=== PATIENT | female | born 1940 | race Caucasian/White ===

== ENCOUNTER 2023-07-18 09:32 | Emergency (ER) | payer MEDICARE, SELFPAY ==
[2023-07-18 09:33] VITALS: BP 96/61; PULSE 67; RESP 20; TEMP 35.7; O2SAT 98
[2023-07-18 09:44] VITALS: BP 96/61; PULSE 75; RESP 24
--- NOTE | 2023-07-18 09:50 | ECG_ITS ---
Measurements Intervals [place] Rate: 70 P: 39 [place]: 191 QRS: 24 QRSD: 106 T: 52 QT: 426 QTc: 460 Interpretive Statements SINUS RHYTHM WITH OCCASIONAL SUPRAVENTRICULAR PREMATURE COMPLEXES NONSPECIFIC T-WAVE ABNORMALITY NO PREVIOUS ECG AVAILABLE FOR COMPARISON Electronically Signed On 07-18-2023 11:22:53 CDT by Lore Jones M.D.
--- NOTE | 2023-07-18 09:52 | ED.AMS ---
HPI - Altered Mental Status General Chief Complaint: Altered Mental Status Stated Complaint: syncopal episode, c/o VILLATORO Time Seen by Provider: 07/18/23 09:36 History of Present Illness HPI narrative: 82-year-old female history of Parkinson's dementia presented to the emergency room via EMS from [facility] for evaluation of a suspected syncopal episode. According to EMS, they were called to the scene for an unresponsive patient. On scene, patient was found to have a blood pressure of 80/44, alert and oriented x2, SPO2 98%. Blood sugar of 160. Daughter was on the scene. She states that the patient has demonstrated increased confusion over the past couple of days, and is questioning whether or not she has a urinary infection. Related Data Allergies Allergy/AdvReac Type Severity Reaction Status Date / Time Sulfa (Sulfonamide Allergy Unknown Verified 07/18/23 10:02 Antibiotics) Review of Systems Review of Systems: CONSTITUTIONAL: Denies fever, chills, or sweats. EYES: Denies visual changes, redness, or discharge. ENT: Denies rhinorrhea, congestion, sore throat, or otalgia. CARDIOVASCULAR: Denies chest pain, palpitations, or edema. RESPIRATORY: Denies cough or dyspnea. GASTROINTESTINAL: Denies abdominal pain, nausea, vomiting, or diarrhea. GENITOURINARY: Denies dysuria or hematuria. SKIN: Denies rash or itching. MUSCULOSKELETAL: Denies back pain, joint pain, or myalgia. NEUROLOGIC: Denies headache, numbness, dizziness, or weakness. PSYCHIATRIC: Denies anxiety or depression. Exam Narrative: GENERAL: Chronically ill-appearing, confused HEAD: Normocephalic, atraumatic. EYES: Conjunctivae normal, PERRLA and EOMI. NECK: Supple. No meningeal signs. No adenopathy or masses. No carotid bruits or JVD CHEST: Clear to auscultation. No respiratory distress. No wheezes rales or rhonchi. HEART: Regular rate and rhythm. No murmur heard. Normal peripheral pulses. ABDOMEN: Soft, nontender, nondistended, normal active bowel sounds. BACK: No CVA tenderness EXTREMITIES: Normal range of motion. No edema. No clubbing or cyanosis SKIN: Warm, dry, no rash. No noted wounds NEURO: No focal deficits. Alert and oriented x2. MAEW. CN's II-XI intact bilaterally PSYCH: Cooperative. Normal mood and affect. Course Vital Signs Vital signs: Vital Signs Temperature 35.7 C L 07/18/23 09:33 Pulse Rate 67 07/18/23 09:33 Respiratory Rate 20 07/18/23 09:33 Blood Pressure 96/61 L 07/18/23 09:33 Pulse Oximetry 98 07/18/23 09:33 Oxygen Delivery Room Air 07/18/23 09:33 Temperature 35.7 C L 07/18/23 09:33 Pulse Rate 67 07/18/23 09:33 Respiratory Rate 20 07/18/23 09:33 Blood Pressure 96/61 L 07/18/23 09:33 Pulse Oximetry 98 07/18/23 09:33 Oxygen Delivery Room Air 07/18/23 09:33 MDM - Altered Mental Status MDM Narrative Medical decision making narrative: 82-year-old female history of Parkinson's and dementia in memory care presented to the emergency room via EMS for suspected syncopal episode and confusion. Patient was alert and oriented x2 on the scene and through her stay at the ER. This is her baseline mental status. Urine shows evidence of a urinary tract infection. Patient was given 1 L of normal saline and a gram of Rocephin. Will discharge patient back to memory care with Keflex. Lab Data 07/18/23 10:03 07/18/23 10:03 Labs: Lab Results 07/18/23 07/18/23 Range/Units 10:03 10:03 WBC 4.3 L (4.5-10.0) K/mm3 RBC 3.22 L (4.2-5.4) M/mm3 Hgb 9.6 L (12.0-15.0) g/dL Hct 30.9 L (37.0-47.0) % MCV 96.0 (80-100) fl MCH 29.8 (26-34) pg MCHC 31.1 L (32-36) g/dl RDW 14.1 (11.5-14.5) % Plt Count 198 (150-375) k/mm3 MPV 9.8 (7.4-10.4) fl Immature Gran % (Auto) 0.5 (0-0.5) % Neut % (Auto) 69.8 (45.5-73.1) % Lymph % (Auto) 15.1 L (18.3-44.2) % [place] % (Auto) 11.3 H (2.6-8.5) % Eos % (Auto) 2.8 (0-4.4) %
[2023-07-18 10:02] VITALS: BP 95/53; PULSE 69; RESP 14; O2SAT 100
[2023-07-18 10:10] LABS: Basophils Percent Auto 0.5 % (0.2-1.2); Eosinophils Absolute Auto 0.1 K/mm3 (0-0.3); Eosinophils Percent Auto 2.8 % (0-4.4); Hematocrit 30.9 % (37.0-47.0); Hemoglobin 9.6 g/dL (12.0-15.0); Immature Granulocyte Absolute 0.02 K/mm3 (0.00-0.031); Immature Granulocyte Percent A 0.5 % (0-0.5); Lymphocytes Absolute Auto 0.64 K/mm3 (0.9-3.2); Lymphocytes Percent Auto 15.1 % (18.3-44.2); Mean Corpuscular HGB Conc 31.1 g/dl (32-36); Mean Corpuscular Hemoglobin 29.8 pg (26-34); Mean Platelet Volume 9.8 fl (7.4-10.4); Monocytes Absolute Auto 0.5 K/mm3 (0.1-0.6); Monocytes Percent Auto 11.3 % (2.6-8.5); Neutrophils Percent Auto 69.8 % (45.5-73.1); Platelet Count Result 198 k/mm3 (150-375); Red Blood Count 3.22 M/mm3 (4.2-5.4); Red Cell Distribution Width 14.1 % (11.5-14.5); White Blood Count 4.3 K/mm3 (4.5-10.0)
[2023-07-18 10:17] LABS: Appearance Urine Clear (Clear); Bacteria Urine 4+ /hpf; Bilirubin Urine Negative (Negative); Blood Urine Negative (Negative); Color Urine Dark Yellow (Yellow); Glucose Urine UA Negative (Negative); Ketones Urine Negative (Negative); Leukocyte Esterase Ur 1+ LEU/UL (Negative); Nitrate Urine Positive (Negative); Protein Urine Negative (Negative); RBC Urine 0-2 /hpf (0-2); Specific Grav Ur 1.014 (1.001-1.035); Squamous Epithelial Cell Urine Occasional /hpf (Few); Urobilinogen Urine 0.2 mg/dL (<2.0); pH Urine 6.5 (5.0-9.0)
[2023-07-18 10:26] LABS: Alanine Aminotransferase 7 U/L (6-35); Albumin Level 3.3 g/dL (3.5-5.1); Alkaline Phosphatase 95 U/L (38-126); Anion Gap 1 mmol/L (8-16); Aspartate Amino Transferase 9 U/L (14-36); Bilirubin,Total 0.6 mg/dL (0.2-1.3); Blood Urea Nitrogen 21 mg/dL (7-17); Calcium 8.6 mg/dL (8.4-10.2); Carbon Dioxide 31 mmol/L (22-30); Chloride 104 mmol/L (98-107); Estimated Glomerular Filt Rate > 60; Glucose 133 mg/dL (65-110); Potassium 3.7 mmol/L (3.4-5.0); Sodium 136 mmol/L (137-145)
[2023-07-18 10:32] VITALS: BP 109/82; PULSE 68; RESP 14; O2SAT 99
[2023-07-18 10:37] LABS: Troponin I < 0.012 ng/mL (0.000-0.034)
[2023-07-18 10:47] LABS: Add Urine Microscopic? YES
[2023-07-18 11:13] VITALS: BP 109/59; PULSE 73; RESP 27; O2SAT 100
== END 2023-07-18 11:33 ==
PROVIDERS: Emergency Provider Nurse Practitioner Family; PCP Family Medicine
DX: N39.0 Urinary tract infection, site not specified (principal); G20.A1 Parkinson's disease without dyskinesia, without mention of fluctuations
CPT/HCPCS: 36415; 80053; 81001; 84484; 85025; 87077; 87086; 87186; 93005; 96365; 99284; J0696

== ENCOUNTER 2023-08-25 08:17 | Emergency (ER) | payer MEDICARE, SELFPAY ==
--- NOTE | ~2023-08-25 | CT_ITS ---
EXAMINATION: CT brain wo con DATE: 08/25/2023 10:27 INDICATION: Fall with posterior head injury TECHNIQUE: Computed tomography (CT) of the head was performed without intravenous contrast. Sagittal and coronal reconstructions were performed. The mA was adjusted according to patient size. Iterative reconstruction technique was employed. The dose-length product was 681.00 mGy-cm. COMPARISON: None FINDINGS: Skinfold versus laceration at the right posterior parietal scalp. No fracture. No acute intracranial hemorrhage, acute infarction or abnormal extra axial fluid collection. There is mild scattered white matter hypoattenuation consistent with chronic small vessel ischemic disease. Symmetric prominence of the sulci and ventricles consistent with moderate age-appropriate diffuse cerebral volume loss. No m ass/mass effect. Changes of bilateral intraocular lens replacement. The orbits and mastoid air cells are normal. Near-complete opacification of the right maxillary sinus which appears small with thicken ed sclerotic torres consistent with sequela of chronic sinusitis. Additional chronic sinusitis of the left maxillary sinus with less severe sclerotic wall thickening at the left maxillary sinus with only mild mucosal thickening. Postoperative changes at the paranasal sinuses was with bilateral antral wi ndow procedures and resection of some of the bilateral ethmoid septations. Intracranial calcified cer ebral atherosclerosis is noted. IMPRESSION: 1. No fracture or acute intracranial process. 2. Age-related changes including moderate diffuse volume loss and mild scattered white matter hypoatt enuation consistent with chronic small vessel ischemic disease. 3. Sequela of chronic sinus disease and prior sinus surgery. Reviewed, dictated and finalized at location A. T BASED MODELER IMPRESSION: 1. No fracture or acute intracranial process. 2. Age-related changes including moderate diffuse volume loss and mild scattere d white matter hypoattenuation consistent with chronic small vessel ischemic di sease. 3. Sequela of chronic sinus disease and prior sinus surgery.
--- NOTE | ~2023-08-25 | CT_ITS ---
EXAMINATION: CT cervical spine wo con DATE: 08/25/2023 10:27 INDICATION: Weakness with fall and posterior head injury. TECHNIQUE: Computed tomography (CT) of the cervical spine was performed without intravenous contrast. Automated exposure control and iterative reconstruction technique were employed. The dose-length pro duct was 155.55 mGy-cm. COMPARISON: None FINDINGS: Moderate osteoarthritis at the atlantoaxial articulation. Mild cervicothoracic levocurvature. 2 mm an terolisthesis C5 on C6 and C7 on T1 and one-2 mm anterolisthesis T2 on T3. Vertebral body heights are normal. Moderate disc height loss at C4-C5 and C6-C7. Mild disc height loss at C3-C4, C5-C6 and C7-T 1. Multilevel moderate to severe facet osteoarthritis throughout the visualized cervical and upper th oracic spine. Additional moderate to severe uncovertebral osteoarthritis at several levels in the lef t and right sides of the cervical spine. There is multilevel mild bilateral cervical neural foraminal stenosis. Only minimal central canal stenosis. Cervical soft tissues are unremarkable. Mild pulmonar y edema in the visualized upper lungs. IMPRESSION: 1. Moderate cervical spondylosis. No acute osseous abnormality. Reviewed, dictated and finalized at location A. SUPERVISOR
--- NOTE | ~2023-08-25 | XR_ITS ---
EXAMINATION: XR chest 1V portable DATE: 08/25/2023 10:30 INDICATION: Fall with weakness TECHNIQUE: frontal view of the chest was obtained. COMPARISON: Cervical spine CT dated 08/25/2023 FINDINGS: More subtle increased interstitial pattern most prominent in the right upper lung zone which correspo nds to mild groundglass opacities and some smooth septal line thickening in the prior CT consistent w ith mild pulmonary edema. No other airspace opacities, pleural effusion or pneumothorax. The cardiome diastinal silhouette is within normal limits for AP technique. Chronic fracture with malunion at the proximal right humerus. IMPRESSION: 1. Mild pulmonary edema. Reviewed, dictated and finalized at location A. DRY OPERATOR FINISHING IMPRESSION: 1. Mild pulmonary edema.
[2023-08-25 08:20] VITALS: BP 169/87; PULSE 74; RESP 16; TEMP 36.6; O2SAT 100
[2023-08-25 09:01] VITALS: BP 156/77; PULSE 65; RESP 14; O2SAT 98
--- NOTE | 2023-08-25 09:30 | ECG_ITS ---
Measurements Intervals [place] Rate: 74 P: 58 [place]: 230 QRS: 14 QRSD: 93 T: 42 QT: 382 QTc: 425 Interpretive Statements SINUS RHYTHM WITH FIRST DEGREE AV BLOCK BASELINE ARTIFACT BORDERLINE ECG COMPARED TO ECG 07/18/2023 09:59:15 FIRST DEGREE AV BLOCK NOW PRESENT Electronically Signed On 08-25-2023 14:11:39 BANQUET BARTENDER by Ceferino Quinones M.D.
[2023-08-25 09:31] VITALS: BP 157/77; PULSE 64; RESP 10; O2SAT 99
--- NOTE | 2023-08-25 09:34 | ED.FALL ---
HPI - Fall General Chief Complaint: Fall Stated Complaint: fall Time Seen by Provider: 08/25/23 09:00 History of Present Illness HPI Narrative: 82-year-old female with a history of Parkinson's dementia reports he EMS from [facility] with her daughter at bedside after an unwitnessed fall. Per the patient, she attempted to get up at this morning and fell. She did hit her head and she reports was on the right frontal scalp. Denies known LOC. her daughter who is present at bedside states that she got a call from the shelter facility around 7:00 a.m. today that the patient had fallen while trying to get out of bed. The daughter states that the patient is normally wheelchair bound, however frequently tries to get out of bed on own. Patient is normally A&O2 and she is at her baseline. The patient denies chest pain or shortness of breath, abdominal pain, nausea, vomiting, diarrhea, urinary complaints. Daughter states the patient has chronic UTIs was recently treated for UTI on July 29. The patient reports an intermittent cough. Related Data Allergies Allergy/AdvReac Type Severity Reaction Status Date / Time Sulfa (Sulfonamide Allergy Unknown Verified 08/25/23 08:32 Antibiotics) Review of Systems Review of Systems: CONSTITUTIONAL: Denies fever, chills, or sweats. EYES: Denies visual changes, redness, or discharge. ENT: Denies rhinorrhea, congestion, sore throat, or otalgia. CARDIOVASCULAR: Denies chest pain, palpitations, or edema. RESPIRATORY: See HPI GASTROINTESTINAL: Denies abdominal pain, nausea, vomiting, or diarrhea. GENITOURINARY: Denies dysuria or hematuria. SKIN: Denies rash or itching. MUSCULOSKELETAL: Denies back pain, joint pain, or myalgia. NEUROLOGIC: Denies headache, numbness, or weakness. PSYCHIATRIC: Denies anxiety or depression. Exam Narrative: GENERAL: Well-appearing, well-nourished, and in no acute distress. HEAD: Hematoma to the right frontal scalp and posterior scalp. No crepitus or ecchymosis. No lacerations or abrasions. EYES: PERRLA and EOMI. ENT: Nares clear, no rhinorrhea or epistaxis. Mucous membranes moist. NECK: No midline cervical spinous tenderness, step-offs or deformities. BACK: No midline thoracolumbar tenderness, step-offs or deformities. CHEST: Clear to auscultation. No respiratory distress. No tenderness to chest wall. HEART: Regular rate and rhythm. No murmur heard. Normal peripheral pulses. ABDOMEN: Soft, nontender, nondistended, normal active bowel sounds. No CVA tenderness. EXTREMITIES: Normal range of motion. No edema. No tenderness to BUE and BLE. Radial and DP pulses 2+. SKIN: Warm, dry, no rash. NEURO: No focal deficits. Alert and oriented x2. Moving all extremities spontaneously. Course Vital Signs Vital signs: Vital Signs Temperature 97.9 F 08/25/23 08:20 Pulse Rate 74 08/25/23 08:20 Respiratory Rate 16 08/25/23 08:20 Blood Pressure 169/87 H 08/25/23 08:20 Pulse Oximetry 100 08/25/23 08:20 Oxygen Delivery Room Air 08/25/23 08:20 Temperature 97.9 F 08/25/23 08:20 Pulse Rate 74 08/25/23 12:16 Respiratory Rate 14 08/25/23 12:16 Blood Pressure 172/82 H 08/25/23 12:16 Pulse Oximetry 100 08/25/23 12:16 Oxygen Delivery Room Air 08/25/23 08:20 MDM - Fall MDM Narrative Medical decision making narrative: 82-year-old female with history of Parkinson's meds and the gait is normally wheelchair-bound reports for evaluation for an unwitnessed fall she attempted to go to bed this morning. See HPI for further history. Vitals significant for elevated blood pressure 169/87, otherwise unremarkable. Patient is A&O x2 which is her baseline. Exam is significant for the above. Lab significant for no leukocytosis. Hemoglobin of 10.7 which is improved from prior. Chemistries with a mildly elevated BUN, otherwise unremarkable. Urinalysis is shows a nitrite positive UTI. COVID, flu and RSV are negative
[2023-08-25] MEDS: ACETAMINOPHEN 325 MG TABLET 650 MG PO (10:12)
[2023-08-25 10:13] LABS: Basophils Percent Auto 0.4 % (0.2-1.2); Eosinophils Absolute Auto 0.1 K/mm3 (0-0.3); Hemoglobin 10.7 g/dL (12.0-15.0); Immature Granulocyte Absolute 0.01 K/mm3 (0.00-0.031); Immature Granulocyte Percent A 0.2 % (0-0.5); Lymphocytes Absolute Auto 0.76 K/mm3 (0.9-3.2); Lymphocytes Percent Auto 16.5 % (18.3-44.2); Mean Corpuscular HGB Conc 31.5 g/dl (32-36); Mean Corpuscular Volume 95.2 fl (80-100); Mean Platelet Volume 10.4 fl (7.4-10.4); Monocytes Absolute Auto 0.5 K/mm3 (0.1-0.6); Monocytes Percent Auto 11.3 % (2.6-8.5); Neutrophils Absolute Auto 3.2 K/mm3 (1.3-6.7); Neutrophils Percent Auto 69.6 % (45.5-73.1); Platelet Count Result 201 k/mm3 (150-375); Red Blood Count 3.57 M/mm3 (4.2-5.4); Red Cell Distribution Width 14.1 % (11.5-14.5); White Blood Count 4.6 K/mm3 (4.5-10.0)
--- NOTE | 2023-08-25 10:15 | PC.NURSE ---
Pt to CT. Assessment unchanged
[2023-08-25 10:23] LABS: Prothrombin Time 13.7 Seconds (11.1-14.7)
[2023-08-25 10:24] LABS: Albumin Level 3.9 g/dL (3.5-5.1); Alkaline Phosphatase 101 U/L (38-126); Anion Gap 6 mmol/L (8-16); Aspartate Amino Transferase 11 U/L (14-36); Bilirubin,Total 0.8 mg/dL (0.2-1.3); Blood Urea Nitrogen 30 mg/dL (7-17); Calcium 9.3 mg/dL (8.4-10.2); Carbon Dioxide 29 mmol/L (22-30); Chloride 106 mmol/L (98-107); Estimated CRCL calculation 56 ml/min; Estimated Glomerular Filt Rate > 60; Glucose 95 mg/dL (65-110); Partial Thromboplastin Time 25.4 SECONDS (22.3-36.8); Potassium 3.9 mmol/L (3.4-5.0); Sodium 141 mmol/L (137-145)
[2023-08-25 10:39] LABS: Alanine Aminotransferase < 6 U/L (6-35)
[2023-08-25 10:48] LABS: Influenza A QL RT-PCR Negative (Negative); Influenza B QL RT-PCR Negative (Negative); RSV RNA, RT-PCR Negative (Negative); SARS-CoV-2 RNA PCR Negative (Negative)
[2023-08-25 10:57] LABS: Appearance Urine Clear (Clear); Bacteria Urine 4+ /hpf; Bilirubin Urine Negative (Negative); Blood Urine Negative (Negative); Color Urine Dark Yellow (Yellow); Glucose Urine UA Negative (Negative); Ketones Urine Trace mg/dL (Negative); Leukocyte Esterase Ur 1+ LEU/UL (Negative); Nitrate Urine Positive (Negative); Non Pathogenic Casts 0-2; Protein Urine Negative (Negative); RBC Urine 0-2 /hpf (0-2); Specific Grav Ur 1.019 (1.001-1.035); Squamous Epithelial Cell Urine None seen /hpf (Few); Urobilinogen Urine 0.2 mg/dL (<2.0); WBC Urine 21-50 /hpf; pH Urine 6.5 (5.0-9.0)
[2023-08-25 11:03] LABS: Add Urine Microscopic? YES
[2023-08-25 11:29] LABS: NT Pro B Type Natriuretic Pept 296 pg/mL (19.9-100)
[2023-08-25 12:16] VITALS: BP 172/82; PULSE 74; RESP 14; O2SAT 100
== END 2023-08-25 13:07 ==
PROVIDERS: Emergency Provider Physician Assistant; PCP Family Medicine
DX: S00.03XA Contusion of scalp, initial encounter (principal); N30.00 Acute cystitis without hematuria; I44.0 Atrioventricular block, first degree; Z20.822 Contact with and (suspected) exposure to COVID-19; G20.A1 Parkinson's disease without dyskinesia, without mention of fluctuations; F02.80 Dementia in other diseases classified elsewhere, unspecified severity, without behavioral disturbance, psychotic disturbance, mood disturbance, and anxiety; Z99.3 Dependence on wheelchair; W06.XXXA Fall from bed, initial encounter
CPT/HCPCS: 36415; 70450; 71045; 72125; 80053; 81001; 83880; 85025; 85610; 85730; 87077; 87086; 87186; 87637; 93005; 96365; 99284; A9270; J0696

== ENCOUNTER 2023-10-09 09:35 | Emergency (ER) | payer MEDICARE, SELFPAY ==
--- NOTE | ~2023-10-09 | XR_ITS ---
XR chest 1V portable DATE: 10/09/2023 10:28 INDICATION: Hypotension. Unresponsive episode. Rule out pneumonia. TECHNIQUE: Portable upright AP chest on 10/09/2023 at 1024 hours COMPARISON: 08/25/2023 AP chest FINDINGS: Mild infiltrate or atelectasis in the right lower lung. Differential diagnosis includes pne umonia, aspiration pneumonitis. Heart size is not optimally evaluated but appears borderline or enlarged. Is aortic calcification and unfolding. No hilar or mediastinal enlargement is evident. Diffuse osteopenia. Old healed fracture deformity of the proximal right humerus. Old posterolateral r ight fourth rib fracture. IMPRESSION: Mild patchy infiltrate or atelectasis, right lower lung, which may be due to pneumonia or aspiration pneumonitis Borderline or increased heart size Aortic atherosclerosis Osteopenia Old fracture deformity of proximal right humerus, old posterolateral right fourth rib fracture Reviewed, dictated and finalized at location L. E CRITIC IMPRESSION: Mild patchy infiltrate or atelectasis, right lower lung, which may be due to pneumonia or aspiration pneumonitis Borderline or increased heart size Aortic atherosclerosis Osteopenia Old fracture deformity of proximal right humerus, old posterolateral right four th rib fracture
--- NOTE | ~2023-10-09 | CT_ITS ---
CT head without contrast Indication: Altered mental status COMPARISON: 08/25/2023 Technique: Serial scans were obtained through the brain without the administration of contrast. Dose reduction technique was used on this scan by utilizing automated exposure control and iterative recon struction technique. The dose-length product (DLP) was 605.33 mGy-cm. Findings: There is no evidence of intracranial hemorrhage, mass lesion, or acute infarct. The ventri cles and subarachnoid spaces are dilated, consistent with moderate atrophy. Low attenuation regions are seen within the periventricular white matter bilaterally, likely representing changes from chroni c microvascular ischemic disease. There is no evidence of edema, mass effect or midline shift. The visualized paranasal sinuses and mastoid air cells are clear. Impression: No intracranial hemorrhage, mass, or acute infarct. Atrophy and chronic white matter changes, as above. Reviewed, dictated and finalized at [facility]. [employer] Impression: No intracranial hemorrhage, mass, or acute infarct. Atrophy and chronic white matter changes, as above.
[2023-10-09 09:35] VITALS: BP 82/53; PULSE 66; RESP 20; TEMP 36.4; O2SAT 95
[2023-10-09 09:44] VITALS: BP 82/53; PULSE 61; RESP 14; O2SAT 97
--- NOTE | 2023-10-09 09:49 | ECG_ITS ---
Measurements Intervals [place] Rate: 62 P: 105 [place]: 208 QRS: 12 QRSD: 91 T: 82 QT: 415 QTc: 424 Interpretive Statements SINUS RHYTHM CONSIDER INFERIOR INFARCT, AGE INDETERMINATE NONSPECIFIC ST & T-WAVE ABNORMALITY- HIGH LATERAL LEADS BASELINE ARTIFACT- II, II, AVR, AVL, AVF, V1, V6 ABNORMAL ECG COMPARED TO ECG 08/25/2023 10:35:31 ST-T WAVE ABNORMALITY NOW PRESENT Electronically Signed On 10-09-2023 9:54:54 AIRSET CASTER by Sunil León D.O.
--- NOTE | 2023-10-09 10:03 | ED.AMS ---
HPI - Altered Mental Status General Chief Complaint: Altered Mental Status Stated Complaint: ams Time Seen by Provider: 10/09/23 10:01 History of Present Illness HPI narrative: Patient is an 82-year-old female who presents to the emergency department this morning from her urologist office due to altered mental status. Patient's daughter and son are currently present at bedside and they helped provide part of the history of present illness. Daughter states the patient has a history of recurrent urinary tract infections and today she was seeing a urologist to have her pessary removed. While there she was very drowsy and they were trying to wake her but were unsuccessful. Daughter states that the patient has been more drowsy lately especially in the morning and she believes it is due to the Seroquel that she is on, 100 mg 3 times a day. She is currently in the process of talking to the patient's PCP to have some reduce the dose as it has been making her super drowsy throughout the day. Patient was seen here approximately 4 months ago for urinary tract infection and presented similarly, initially as unresponsive. Daughter states that the doctor who initially was trying to check her pulse could not find it, however, different physician did find falls and patient ended up waking on her. She is currently alert and oriented to person, place and situation and is answering all my questions. Patient denies any chest pain, shortness of breath, nausea, vomiting, abdominal pain, dysuria, hematuria, constipation, diarrhea, melena, hematochezia, fevers or chills. Patient also denies any headaches, dizziness, lightheadedness, blurry visions, focal weakness, numbness and or tingling. There are no other modifying, alleviating, or precipitating factors at this time. Related Data Allergies Allergy/AdvReac Type Severity Reaction Status Date / Time Sulfa (Sulfonamide Allergy Unknown Verified 10/09/23 11:52 Antibiotics) Review of Systems Review of Systems: All systems are reviewed and are negative unless stated otherwise in the HPI. Exam Narrative: General: Alert, awake, afebrile, in no acute distress. HEENT: PERRL, no rhinorrhea, no post nasal drip, oropharynx clear. Neck: Trachea midline, no JVD, no lymphadenopathy. Cardiovascular: Regular rate and rhythm, no murmurs, rubs or gallops, no peripheral edema. Respiratory: Clear to auscultation bilaterally, no tachypnea, no wheezing, no rhonchi, no rubs, no respiratory distress. Abdomen: Soft, nontender, nondistended, no rebound, no guarding, no peritoneal signs. Musculoskeletal: No joint swelling or deformity, normal muscle tone. Skin: No rashes or petechia, no signs of infection. Psychiatric: Alert and oriented, normal behavior and judgment for situation. Neurological: Alert and oriented to person, place, and time. Follows all commands. Spontaneously moving all 4 extremities. no focal deficits, speech is clear and fluent. Course Vital Signs Vital signs: Vital Signs Temperature 97.6 F 10/09/23 09:35 Pulse Rate 66 10/09/23 09:35 Respiratory Rate 20 10/09/23 09:35 Blood Pressure 82/53 L 10/09/23 09:35 Pulse Oximetry 95 10/09/23 09:35 Temperature 97.6 F 10/09/23 09:35 Pulse Rate 62 10/09/23 11:00 Respiratory Rate 12 10/09/23 11:00 Blood Pressure 158/73 H 10/09/23 11:00 Pulse Oximetry 100 10/09/23 11:00 Oxygen Delivery Room Air 10/09/23 09:40 MDM - Altered Mental Status MDM Narrative Medical decision making narrative: The patient was evaluated by myself in the emergency department. History is obtained from EMS physical exam was performed. External medical records were reviewed at this time. IV was established and pertinent tests were ordered. Patient's vital signs were reviewed and patient was noted to have a blood pressure of 82/53 mmHg and at this time he was started on IV fluids at a rate of 100 cc/hour with normal saline. Repeat blood pressure
[2023-10-09 10:04] VITALS: BP 85/66; PULSE 64; RESP 22; O2SAT 100
[2023-10-09] MEDS: SODIUM CHLORIDE 0.9% IV 1,000 ML 999 ML IV CONT (10:08)
[2023-10-09 10:18] LABS: Basophils Percent Auto 0.4 % (0.2-1.2); Eosinophils Absolute Auto 0.1 K/mm3 (0-0.3); Eosinophils Percent Auto 0.8 % (0-4.4); Hematocrit 36.6 % (37.0-47.0); Hemoglobin 11.5 g/dL (12.0-15.0); Immature Granulocyte Absolute 0.04 K/mm3 (0.00-0.031); Immature Granulocyte Percent A 0.6 % (0-0.5); Lymphocytes Absolute Auto 0.77 K/mm3 (0.9-3.2); Lymphocytes Percent Auto 10.7 % (18.3-44.2); Mean Corpuscular HGB Conc 31.4 g/dl (32-36); Mean Corpuscular Hemoglobin 30.3 pg (26-34); Mean Corpuscular Volume 96.3 fl (80-100); Mean Platelet Volume 9.6 fl (7.4-10.4); Monocytes Absolute Auto 0.5 K/mm3 (0.1-0.6); Monocytes Percent Auto 7.4 % (2.6-8.5); Neutrophils Absolute Auto 5.8 K/mm3 (1.3-6.7); Neutrophils Percent Auto 80.1 % (45.5-73.1); Platelet Count Result 211 k/mm3 (150-375); Red Cell Distribution Width 13.2 % (11.5-14.5); White Blood Count 7.2 K/mm3 (4.5-10.0)
[2023-10-09 10:30] LABS: Alanine Aminotransferase 7 U/L (6-35); Albumin Level 3.9 g/dL (3.5-5.1); Alkaline Phosphatase 84 U/L (38-126); Anion Gap 6 mmol/L (8-16); Aspartate Amino Transferase 12 U/L (14-36); Bilirubin,Total 0.6 mg/dL (0.2-1.3); Blood Urea Nitrogen 29 mg/dL (7-17); Calcium 9.3 mg/dL (8.4-10.2); Carbon Dioxide 31 mmol/L (22-30); Chloride 105 mmol/L (98-107); Estimated Glomerular Filt Rate 60; Glucose 96 mg/dL (65-110); Potassium 3.9 mmol/L (3.4-5.0); Sodium 142 mmol/L (137-145)
[2023-10-09 10:31] VITALS: BP 138/63; PULSE 62; RESP 18; O2SAT 100
[2023-10-09 10:31] LABS: Lactic Acid Reflex 1.5 mmol/L (0.7-2.0)
[2023-10-09 10:32] LABS: Appearance Urine Clear (Clear); Bacteria Urine None Seen /hpf; Bilirubin Urine Negative (Negative); Blood Urine Negative (Negative); Color Urine Dark Yellow (Yellow); Glucose Urine UA Negative (Negative); Ketones Urine Trace mg/dL (Negative); Leukocyte Esterase Ur Trace LEU/UL (Negative); Need Manual Microscopic Reviewed; Nitrate Urine Negative (Negative); Non Pathogenic Casts 0-2; Protein Urine Negative (Negative); RBC Urine 0-2 /hpf (0-2); Specific Grav Ur 1.024 (1.001-1.035); Squamous Epithelial Cell Urine None seen /hpf (Few); Urobilinogen Urine 0.2 mg/dL (<2.0); WBC Urine 0-5 /hpf; pH Urine 6.5 (5.0-9.0)
[2023-10-09 10:34] LABS: Prothrombin Time 13.8 Seconds (11.1-14.7)
[2023-10-09 10:35] LABS: Add Urine Microscopic? YES; Partial Thromboplastin Time 29.4 SECONDS (22.3-36.8)
[2023-10-09 10:42] LABS: Troponin I < 0.012 ng/mL (0.000-0.034)
[2023-10-09 10:54] LABS: Influenza A QL RT-PCR Negative (Negative); Influenza B QL RT-PCR Negative (Negative); SARS-CoV-2 RNA PCR Negative (Negative)
[2023-10-09 11:00] VITALS: BP 158/73; PULSE 62; RESP 12; O2SAT 100
[2023-10-09 11:41] LABS: RSV RNA, RT-PCR Negative (Negative)
[2023-10-09 12:30] VITALS: BP 165/85; PULSE 72; RESP 16; O2SAT 100
== END 2023-10-09 14:52 ==
PROVIDERS: Emergency Provider Emergency Medicine; PCP Family Medicine
DX: R41.82 Altered mental status, unspecified (principal); J18.9 Pneumonia, unspecified organism; T43.595A Adverse effect of other antipsychotics and neuroleptics, initial encounter; Z20.822 Contact with and (suspected) exposure to COVID-19; R94.31 Abnormal electrocardiogram [ECG] [EKG]
CPT/HCPCS: 36415; 70450; 71045; 80053; 81001; 83605; 84484; 85025; 85610; 85730; 87634; 87636; 93005; 96360; 99284; J7030

== ENCOUNTER 2023-10-24 21:34 | Inpatient (IN) | payer MEDICARE, SELFPAY ==
--- NOTE | ~2023-10-24 | XR_ITS ---
EXAMINATION: XR chest 1V portable DATE: 10/24/2023 22:32 INDICATION: Fever and altered mental status TECHNIQUE: frontal view of the chest was obtained. COMPARISON: Chest radiograph dated 10/09/2023 FINDINGS: Increased mild patchy airspace opacities in the right upper and right lower lung zones suspicious for pneumonia. Mild streaky opacities at the left lung base more likely to represent atelectasis. No ple ural effusion or pneumothorax. Borderline heart size accounting for AP technique. IMPRESSION: 1. Opacities in the right upper and right lower lung zones which are suspicious for pneumonia. 2. Borderline heart size accounting for AP technique. Reviewed, dictated and finalized at location A. [employer]
[2023-10-24 21:35] VITALS: BP 127/75; PULSE 85; RESP 16; TEMP 37.6; O2SAT 94
[2023-10-24 22:11] LABS: Basophils Percent Auto 0.2 % (0.2-1.2); Hematocrit 28.1 % (37.0-47.0); Hemoglobin 8.8 g/dL (12.0-15.0); Immature Granulocyte Absolute 0.03 K/mm3 (0.00-0.031); Immature Granulocyte Percent A 0.6 % (0-0.5); Lymphocytes Absolute Auto 0.43 K/mm3 (0.9-3.2); Lymphocytes Percent Auto 8.1 % (18.3-44.2); Mean Corpuscular HGB Conc 31.3 g/dl (32-36); Mean Corpuscular Hemoglobin 30.1 pg (26-34); Mean Corpuscular Volume 96.2 fl (80-100); Mean Platelet Volume 10.1 fl (7.4-10.4); Monocytes Absolute Auto 0.4 K/mm3 (0.1-0.6); Monocytes Percent Auto 6.6 % (2.6-8.5); Neutrophils Absolute Auto 4.5 K/mm3 (1.3-6.7); Neutrophils Percent Auto 84.5 % (45.5-73.1); Platelet Count Result 121 k/mm3 (150-375); Red Blood Count 2.92 M/mm3 (4.2-5.4); Red Cell Distribution Width 13.2 % (11.5-14.5); White Blood Count 5.3 K/mm3 (4.5-10.0)
[2023-10-24 22:18] LABS: Appearance Urine Clear (Clear); Bacteria Urine 4+ /hpf; Bilirubin Urine Negative (Negative); Blood Urine Negative (Negative); Color Urine Dark Yellow (Yellow); Glucose Urine UA Negative (Negative); Ketones Urine Trace mg/dL (Negative); Leukocyte Esterase Ur Trace LEU/UL (Negative); Nitrate Urine Positive (Negative); Non Pathogenic Casts 0-2; Protein Urine Negative (Negative); RBC Urine 0-2 /hpf (0-2); Specific Grav Ur 1.019 (1.001-1.035); Squamous Epithelial Cell Urine None seen /hpf (Few); Urobilinogen Urine 0.2 mg/dL (<2.0); WBC Urine 0-5 /hpf; pH Urine 6.5 (5.0-9.0)
[2023-10-24 22:21] LABS: Add Urine Microscopic? YES; Lactic Acid Reflex 0.9 mmol/L (0.7-2.0)
[2023-10-24 22:22] LABS: INR 0.9; Prothrombin Time 12.7 Seconds (11.1-14.7)
[2023-10-24 22:23] LABS: Alanine Aminotransferase 9 U/L (6-35); Albumin Level 3.5 g/dL (3.5-5.1); Alkaline Phosphatase 117 U/L (38-126); Anion Gap 2 mmol/L (8-16); Aspartate Amino Transferase 13 U/L (14-36); Bilirubin,Total 0.6 mg/dL (0.2-1.3); Blood Urea Nitrogen 24 mg/dL (7-17); CRP 1.9 mg/dL (<1.0); Calcium 8.9 mg/dL (8.4-10.2); Carbon Dioxide 31 mmol/L (22-30); Chloride 102 mmol/L (98-107); Estimated CRCL calculation 46 ml/min; Estimated Glomerular Filt Rate > 60; Glucose 111 mg/dL (65-110); Potassium 4.2 mmol/L (3.4-5.0); Sodium 135 mmol/L (137-145)
[2023-10-24] MEDS: ACETAMINOPHEN 650 MG SUPPOSITORY RECTAL (22:25)
[2023-10-24 22:27] VITALS: TEMP 38
[2023-10-24 22:48] LABS: Influenza A QL RT-PCR Negative (Negative); Influenza B QL RT-PCR Positive (Negative); RSV RNA, RT-PCR Negative (Negative); SARS-CoV-2 RNA PCR Negative (Negative)
--- NOTE | 2023-10-24 22:51 | ED.FEVER ---
HPI - Fever General Chief Complaint: Fever Stated Complaint: fever, lethargic Time Seen by Provider: 10/24/23 21:42 Source: family and EMS Mode of arrival: EMS Limitations: altered mental status History of Present Illness HPI Narrative: This is a 82 year old female that presents to the ER for fever noted today. Also reports lethargy. Patient's family members report she was recently treated for pneumonia. Unable to get any further history from patient. She denies any current pain. Related Data Allergies Allergy/AdvReac Type Severity Reaction Status Date / Time Sulfa (Sulfonamide Allergy Unknown Verified 10/09/23 11:52 Antibiotics) Review of Systems Review of Systems: ROS unobtainable: Yes unobtainable due to mental status PMFSH Past Medical History Medical History (Updated 10/25/23 @ 02:12 by Alison Merida PA-C) History of Parkinson's disease Social History Social History (Updated 10/24/23 @ 22:58 by Alison Merida PA-C) Substance use: never Exam Narrative: GENERAL: Lethargic, well-nourished, and in no acute distress. HEAD: Normocephalic, atraumatic. EYES: PERRLA and EOMI. ENT: Nares clear, no rhinorrhea or epistaxis. Mucous membranes moist. Oropharynx without tonsillar hypertrophy exudate or other lesions. Bilateral TMs pearly stanley non-bulging NECK: Supple. No adenopathy or masses CHEST: Clear to auscultation. No respiratory distress. No wheezes rales or rhonchi HEART: Regular rate and rhythm. No murmur heard. Normal peripheral pulses. ABDOMEN: Soft, nontender, nondistended, normal active bowel sounds. EXTREMITIES: Normal range of motion. No edema. SKIN: Warm, dry, no rash. NEURO: Lethargic. Will open her eyes and follow some commands. Alert to her name PSYCH: Normal mood and affect Course Consultations Consultation #1: Spoke with hospitalist about patient and workup who accepts admission Date: 10/25/23 Vital Signs Vital signs: Vital Signs Temperature 99.7 F H 10/24/23 21:35 Pulse Rate 85 10/24/23 21:35 Respiratory Rate 16 10/24/23 21:35 Blood Pressure 127/75 10/24/23 21:35 Pulse Oximetry 94 10/24/23 21:35 Oxygen Delivery Room Air 10/24/23 21:35 Temperature 100.1 F H 10/24/23 22:55 Pulse Rate 71 10/25/23 02:21 Respiratory Rate 14 10/25/23 02:21 Blood Pressure 149/107 H 10/25/23 02:21 Pulse Oximetry 99 10/25/23 02:21 Oxygen Delivery Nasal Cannula 10/24/23 23:31 Oxygen Flow Rate 2 10/24/23 23:31 MDM - Fever MDM Narrative Medical decision making narrative: Patient presents to the ER for fever and lethargy. Patient febrile in the ED. She is lethargic, alert to her name. CBC without leukocytosis. Shows normocytic anemia hemoglobin of 8.8. Metabolic panel without concerning findings. UA with possible evidence of infection. This will be sent for culture. Patient is influenza B positive. Chest x-ray shows worsening pneumonia. Blood cultures obtained patient started on IV antibiotics. Will be started on Tamiflu once she can tolerate oral intake. Will be admitted for further management. Spoke with hospitalist about patient and workup who accepts admission Differential Diagnosis Differential diagnosis: Likely fever of unknown origin, community acquired pneumonia, viral infection, sepsis, influenza and other (UTI, dehydration) Lab Data Attestation: I reviewed the patient's lab results. 10/24/23 22:04 10/24/23 22:04 Labs: Lab Results 10/24/23 Range/Units 22:04 WBC 5.3 (4.5-10.0) K/mm3 RBC 2.92 L (4.2-5.4) M/mm3 Hgb 8.8 L (12.0-15.0) g/dL Hct 28.1 L (37.0-47.0) % MCV 96.2 (80-100) fl MCH 30.1 (26-34) pg MCHC 31.3 L (32-36) g/dl RDW 13.2 (11.5-14.5) % Plt Count 121 L (150-375) k/mm3 MPV 10.1 (7.4-10.4) fl Immature Gran % (Auto) 0.6 H (0-0.5) % Neut % (Auto) 84.5 H (45.5-73.1) % Lymph % (Auto) 8.1 L (18.3-44.2) % [place] % (Auto) 6.6 (2.6-8.5) % Eos % (Auto) 0.0
[2023-10-24 22:55] VITALS: TEMP 37.8
[2023-10-24 22:58] VITALS: PULSE 68
[2023-10-24] MEDS: AZITHROMYCIN 500 MG/NS 250 ML 500 MG/250 ML BAG 250 MG IVPB (23:17)
[2023-10-24 23:31] VITALS: O2SAT 98
--- NOTE | 2023-10-24 23:31 | PC.NURSE ---
Patient's SPO2 dropped down to 87%. 2L/min of oxygen applied via nasal cannula. SPO2 now 98%.
[2023-10-25] VITALS (17 sets, daily range): BP systolic 109–155; BP diastolic 53–107; PULSE 65–107; RESP 12–17; TEMP 36–38.1; O2SAT 94–100; BMI 20.7
--- NOTE | 2023-10-25 00:39 | ECG_ITS ---
Measurements Intervals Melvin Rate: 91 P: 41 VA: 247 QRS: 8 QRSD: 93 T: 44 QT: 362 QTc: 447 Interpretive Statements SINUS RHYTHM WITH FIRST DEGREE AV BLOCK COMPARED TO ECG 10/09/2023 09:49:45 FIRST DEGREE AV BLOCK NOW PRESENT Electronically Signed On 10-25-2023 13:57:49 [employer] STACKER OPERATOR by Debi Fraser M.D.
[2023-10-25] MEDS: SODIUM CHLORIDE 0.9% IV 500 ML 999 ML IV CONT (01:00)
--- NOTE | 2023-10-25 02:03 | PM.IMHP ---
H&P: HPI History of Present Illness Date/Time: 10/25/23 02:03 Chief Complaint: Altered mental status Narrative: This is an 83-year-old female with past medical history significant for Parkinson's, Parkinson's dementia, patient lives at [facility]. According to daughter who is at bedside from whom most of the history has been obtained she was noted to be very lethargic, poor per orally intake, fever. Here in the emergency room patient is very lethargic. Preliminary workup was significant for patient tested positive for influenza, chest x-ray has infiltrates. Patient has been admitted for further evaluation management and treatment. EXAMINATION: XR chest 1V portable DATE: 10/24/2023 22:32 INDICATION: Fever and altered mental status TECHNIQUE: frontal view of the chest was obtained. COMPARISON: Chest radiograph dated 10/09/2023 FINDINGS: Increased mild patchy airspace opacities in the right upper and right lower lung zones suspicious for pneumonia. Mild streaky opacities at the left lung base more likely to represent atelectasis. No pleural effusion or pneumothorax. Borderline heart size accounting for AP technique. IMPRESSION: 1. Opacities in the right upper and right lower lung zones which are suspicious for pneumonia. 2. Borderline heart size accounting for AP technique. Review of Systems Review of Systems: ROS unobtainable: Yes unobtainable due to mental status (Lethargy/obtundation) [facility] Past Medical History Medical History (Updated 10/25/23 @ 05:32 by Reinaldo Pinto MD) History of Parkinson's disease Social History Social History (Updated 10/24/23 @ 22:58 by Alison Merida PA-C) Smoking status: Unknown if ever smoked Alcohol intake: unknown Substance use: unknown Spiritual care concerns: No Meds Home Medications and Allergies Home Medications Medication Instructions Recorded Confirmed Type Artificial Tears 1 drp EACH EYE TID 10/25/23 10/25/23 History Miralax 17 g PO DAILY PRN Constipation 10/25/23 10/25/23 History Refresh Optive 1 drp EACH EYE QID PRN Dry Eyes 10/25/23 10/25/23 History acetaminophen 650 mg PO Q6H PRN Pain (Scale 10/25/23 10/25/23 History Score 1-3) ascorbic acid (vitamin C) 1,000 mg 1,000 mg PO BID 10/25/23 10/25/23 History tablet carbidopa 25 mg-levodopa 100 mg See Rx Instructions .Route .COMPLEX 10/25/23 10/25/23 History tablet cephalexin 500 mg capsule 500 mg PO Q12H 10/25/23 10/25/23 History cholecalciferol (vitamin D3) 25 1,000 unit PO 1200 10/25/23 10/25/23 History mcg (1,000 unit) chewable tablet (Vitamin D3) entacapone 200 mg tablet 200 mg PO TID 10/25/23 10/25/23 History gabapentin 400 mg capsule 400 mg PO HS 10/25/23 10/25/23 History ibuprofen 600 mg PO Q8H PRN Pain 10/25/23 10/25/23 History melatonin 10 mg PO HS 10/25/23 10/25/23 History methenamine hippurate 1 gram tablet 1 g PO BIDWMEAL 10/25/23 10/25/23 History mirtazapine 7.5 mg tablet 7.5 mg PO HS 10/25/23 10/25/23 History quetiapine 25 mg tablet 100 mg PO TID 10/25/23 10/25/23 History Allergies Allergy/AdvReac Type Severity Reaction Status Date / Time Sulfa (Sulfonamide Allergy Unknown Verified 10/25/23 03:28 Antibiotics) Vital Signs Vital Signs - 24 hr 10/24/23 21:35 10/24/23 22:27 10/24/23 22:58 Temperature 99.7 F H 100.4 F H Pulse Rate 85 68 Respiratory Rate 16 Blood Pressure 127/75 Pulse Oximetry 94 Oxygen Delivery Room Air Oxygen Flow Rate 10/24/23 23:31 10/25/23 01:05 10/24/23 22:55 Temperature 100.1 F H Pulse Rate 65 Respiratory Rate 12 Blood Pressure 155/91 H Pulse Oximetry 98 98 Oxygen Delivery Nasal Cannula Oxygen Flow Rate 2 Exam Narrative: Patient is laying in a stretcher Const: General: comfortable, no acute distress, well developed, ill appearing acutely, lethargic, patient obtunded and thin Nutritional Appearance: average body habitus Orientation/consciousness: patient oriented
--- NOTE | 2023-10-25 03:13 | ADMGEN ---
This patient, Zully Joya, was admitted to [facility] Room 317-02. Patient/family oriented to hospital policies and general routines including ID bracelet, bed and alarms, visiting hours, pain management, procedures, bathroom and other care routines, personal items, smoking policy, room service/diet, and visiting hours. Information on how to activate the Rapid Response Team has been discussed. Patient/Family are encouraged to report perceived risks to care and to ask questions if they do not understand what they are told or what they should do.
[2023-10-25] MEDS: IBUPROFEN IV 400 MG in SODIUM CHLORIDE 0.9% IV 100 ML 208 MG IVPB (04:03)
[2023-10-25] MEDS: OSELTAMIVIR PHOSPHATE 30 MG CAPSULE PO ×2 (04:03→21:34)
--- NOTE | 2023-10-25 15:45 | PM.IMPN ---
Progress Note: A&P Assessment and Plan (1) Pneumonia: Qualifiers: Laterality: right Lung location: lower lobe of lung Pneumonia type: due to unspecified organism Qualified Code(s): J18.9 - Pneumonia, unspecified organism Code(s): J18.9 - Pneumonia, unspecified organism Status: Acute Assessment and Plan: Chest x-ray with concern for pneumonia Patient started on Rocephin and Zithromax blood culture pending (2) Influenza B: Code(s): J10.1 - Influenza due to other identified influenza virus with other respiratory manifestations Status: Acute Assessment and Plan: Patient tested positive for flu A. Tamiflu started. Patient requiring 2 L of oxygen supplementation. Wean oxygen to maintain O2 saturation greater than 92%. Patient's home setting is room air (3) Altered mental status: Code(s): R41.82 - Altered mental status, unspecified Status: Acute Assessment and Plan: Patient A&O x1 which is her baseline. (4) Parkinson's disease: Code(s): G20.A1 - Parkinson's disease without dyskinesia, without mention of fluctuations Status: Acute Assessment and Plan: Resume home meds as needed (5) Parkinson's disease dementia: Code(s): G20.A1 - Parkinson's disease without dyskinesia, without mention of fluctuations; F02.80 - Dementia in other diseases classified elsewhere, unspecified severity, without behavioral disturbance, psychotic disturbance, mood disturbance, and anxiety Status: Acute Assessment and Plan: Resume home meds as needed Subjective Date/time seen: 10/25/23 15:45 Interval history: Patient is alert orient x1. She is able to me she has a cough. She is not coughing anything up that I can tell. Will treat with antibiotic therapy and Tamiflu. Continue to monitor and wean oxygen. Exam Narrative: GENERAL: Comfortable, no acute distress HENMT: moist mucous membranes EYES: EOM intact b/l NECK: no lymphadenopathy RESPIRATORY: bibasilar crackles CARDIO: RRR GI: soft, nontender, bowel sounds present SKIN: no rashes EXTREMITIES: no edema, redness or tenderness Objective Data Vital Signs Vital Signs: Vital Signs - 24 hr 10/24/23 21:35 10/24/23 22:27 10/24/23 22:58 Temperature 99.7 F H 100.4 F H Pulse Rate 85 68 Respiratory Rate 16 Blood Pressure 127/75 Pulse Oximetry 94 Oxygen Delivery Room Air Oxygen Flow Rate 10/24/23 23:31 10/25/23 01:05 10/24/23 22:55 Temperature 100.1 F H Pulse Rate 65 Respiratory Rate 12 Blood Pressure 155/91 H Pulse Oximetry 98 98 Oxygen Delivery Nasal Cannula Oxygen Flow Rate 2 10/25/23 02:09 10/25/23 02:21 10/25/23 04:03 Temperature 100.5 F H Pulse Rate 73 71 Respiratory Rate 16 14 Blood Pressure 151/75 H 149/107 H Pulse Oximetry 100 99 Oxygen Delivery Oxygen Flow Rate 10/25/23 03:15 10/25/23 04:00 10/25/23 04:59 Temperature 100.3 F H 98.9 F Pulse Rate 107 H 70 Respiratory Rate 12 Blood Pressure 152/102 H Pulse Oximetry 99 Oxygen Delivery Oxygen Flow Rate 10/25/23 04:25 10/25/23 15:12 Temperature 98.9 F 98.1 F Pulse Rate 73 74 Respiratory Rate 12 17 Blood Pressure 137/67 109/53 L Pulse Oximetry 100 95 Oxygen Delivery Oxygen Flow Rate Intake/Output Intake/Output: Intake & Output 10/22/23 10/23/23 10/24/23 10/25/23 23:59 23:59 23:59 23:59 Intake Total 50 854 Output Total 500 Balance -450 854 Meds/Results Medications: Active Medications Generic Name Dose Route Start Last Admin Trade Name Freq PRN Reason Stop Dose Admin Ceftriaxone Sodium 1 gm in 50 mls @ 100 mls/hr 10/25/23 23:00 Rocephin 1 Gm/Ns 50 Ml IVPB Q24H NIKOS Azithromycin 500 mg in 250 mls @ 250 mls/hr 10/25/23 23:00 Zithromax IVPB Q24H NIKOS Oseltamivir Phosphate 30 mg 10/25/23 21:00 Oseltamivir Phosphate 3
--- NOTE | 2023-10-25 18:03 | WPDURCON ---
Assessment and Plan Assessment and plan (1) Pelvic organ prolapse quantification stage 1 cystocele: Code(s): N81.10 - Cystocele, unspecified Status: Acute Assessment and Plan: I am not familiar with appropriate sizing and change of pessaries as this patient has. I will see if somebody is available tomorrow who might be able to do that while she is admitted. Otherwise she will need follow-up as an outpatient Urology Consult Note HPI Date Seen: 10/25/23 Requesting Physician: Reinaldo Pinto MD Primary Care Provider: Smitha CardozaMD Consult Narrative Narrative: Zully Joya is a 83 year old female Known to our practice with significant pelvic prolapse managed with a pessary. Several weeks ago, while in the office for a pessary change, she developed a significant cardiopulmonary event with near cardiac arrest. She is now admitted with possible pneumonia and influenza. We're asked to change her pessary. Review of Systems Review of Systems: ROS unobtainable: Yes unobtainable due to mental status PMFSH Past Medical History Medical History (Updated 10/25/23 @ 18:04 by Blaise Torres MD) History of Parkinson's disease Social History Social History (Updated 10/24/23 @ 22:58 by Alison Merida PA-C) Smoking status: Unknown if ever smoked Alcohol intake: unknown Substance use: unknown Spiritual care concerns: No Meds Home Medications and Allergies Home Medications Medication Instructions Recorded Confirmed Type Artificial Tears 1 drp EACH EYE TID 10/25/23 10/25/23 History Miralax 17 g PO DAILY PRN Constipation 10/25/23 10/25/23 History Refresh Optive 1 drp EACH EYE QID PRN Dry Eyes 10/25/23 10/25/23 History acetaminophen 650 mg PO Q6H PRN Pain (Scale 10/25/23 10/25/23 History Score 1-3) ascorbic acid (vitamin C) 1,000 mg 1,000 mg PO BID 10/25/23 10/25/23 History tablet carbidopa 25 mg-levodopa 100 mg See Rx Instructions .Route .COMPLEX 10/25/23 10/25/23 History tablet cephalexin 500 mg capsule 500 mg PO Q12H 10/25/23 10/25/23 History cholecalciferol (vitamin D3) 25 1,000 unit PO 1200 10/25/23 10/25/23 History mcg (1,000 unit) chewable tablet (Vitamin D3) entacapone 200 mg tablet 200 mg PO TID 10/25/23 10/25/23 History gabapentin 400 mg capsule 400 mg PO HS 10/25/23 10/25/23 History ibuprofen 600 mg PO Q8H PRN Pain 10/25/23 10/25/23 History melatonin 10 mg PO HS 10/25/23 10/25/23 History methenamine hippurate 1 gram tablet 1 g PO BIDWMEAL 10/25/23 10/25/23 History mirtazapine 7.5 mg tablet 7.5 mg PO HS 10/25/23 10/25/23 History quetiapine 25 mg tablet 100 mg PO TID 10/25/23 10/25/23 History Allergies Allergy/AdvReac Type Severity Reaction Status Date / Time Sulfa (Sulfonamide Allergy Unknown Verified 10/25/23 03:28 Antibiotics) Vital Signs Vital Signs - 24 hr 10/24/23 21:35 10/24/23 22:27 10/24/23 22:58 Temperature 99.7 F H 100.4 F H Pulse Rate 85 68 Respiratory Rate 16 Blood Pressure 127/75 Pulse Oximetry 94 Oxygen Delivery Room Air Oxygen Flow Rate 10/24/23 23:31 10/25/23 01:05 10/24/23 22:55 Temperature 100.1 F H Pulse Rate 65 Respiratory Rate 12 Blood Pressure 155/91 H Pulse Oximetry 98 98 Oxygen Delivery Nasal Cannula Oxygen Flow Rate 2 10/25/23 02:09 10/25/23 02:21 10/25/23 04:03 Temperature 100.5 F H Pulse Rate 73 71 Respiratory Rate 16 14 Blood Pressure 151/75 H 149/107 H Pulse Oximetry 100 99 Oxygen Delivery Oxygen Flow Rate 10/25/23 03:15 10/25/23 04:00 10/25/23 04:59 Temperature 100.3 F H 98.9 F Pulse Rate 107 H 70 Respiratory Rate 12 Blood Pressure 152/102 H Pulse Oximetry 99 Oxygen Delivery Oxygen Flow Rate 10/25/23 04:25 10/25/23 15:12 Temperature 98.9 F 98.1 F Pulse Rate 73 74 Respiratory Rate 12 17 Blood Pressure 137/67 109/53 L Pulse Oximetry 100 95 Oxygen Delivery Oxygen Flow Rate Exam Const: General: n
[2023-10-25] MEDS: ASCORBIC ACID 500 MG TABLET 1000 MG PO (18:49)
[2023-10-25] MEDS: ENTACAPONE 200 MG TABLET PO (18:50)
[2023-10-25] MEDS: CARBIDOPA/LEVODOPA 25/100 MG TABLET 1 TABLET PO ×2 (18:50→21:36)
[2023-10-25] MEDS: ARTIFICIAL TEARS OPHTH SOLN 15 ML BOTTLE 1 DROP EACH EYE (18:51)
[2023-10-25] MEDS: GABAPENTIN 400 MG CAPSULE PO (21:34)
[2023-10-25] MEDS: MIRTAZAPINE 7.5 MG TABLET PO (21:34)
[2023-10-25] MEDS: CARBIDOPA/LEVODOPA 12.5/50 MG TABLET 1 TABLET PO (21:34)
[2023-10-25] MEDS: MELATONIN 5 MG TABLET 10 MG PO (21:34)
[2023-10-25] MEDS: QUEtiapine FUMARATE 100 MG TABLET PO (21:36)
[2023-10-25] MEDS: ALBUTEROL SULFATE NEB 2.5 MG/3 ML INH INHALATION (22:25)
[2023-10-25] MEDS: IPRATROPIUM BR 0.02% INH SOLN 0.5 MG/2.5 ML VIAL INHALATION (22:25)
[2023-10-26] VITALS (19 sets, daily range): BP systolic 104–156; BP diastolic 56–78; PULSE 54–80; RESP 14–20; TEMP 36.4–37.2; O2SAT 92–100
[2023-10-26] MEDS: AZITHROMYCIN 500 MG/NS 250 ML 500 MG/250 ML BAG 250 MG IVPB ×2 (00:08→22:17)
[2023-10-26] MEDS: IPRATROPIUM BR 0.02% INH SOLN 0.5 MG/2.5 ML VIAL INHALATION ×3 (03:28→14:32)
[2023-10-26] MEDS: ALBUTEROL SULFATE NEB 2.5 MG/3 ML INH INHALATION ×3 (03:32→14:32)
[2023-10-26 07:39] LABS: Basophils Percent Auto 0.1 % (0.2-1.2); Eosinophils Percent Auto 0.1 % (0-4.4); Hematocrit 32.9 % (37.0-47.0); Hemoglobin 10.1 g/dL (12.0-15.0); Immature Granulocyte Absolute 0.04 K/mm3 (0.00-0.031); Immature Granulocyte Percent A 0.6 % (0-0.5); Lymphocytes Absolute Auto 0.82 K/mm3 (0.9-3.2); Lymphocytes Percent Auto 11.8 % (18.3-44.2); Mean Corpuscular HGB Conc 30.7 g/dl (32-36); Mean Corpuscular Volume 97.6 fl (80-100); Monocytes Absolute Auto 0.7 K/mm3 (0.1-0.6); Monocytes Percent Auto 9.5 % (2.6-8.5); Neutrophils Absolute Auto 5.4 K/mm3 (1.3-6.7); Neutrophils Percent Auto 77.9 % (45.5-73.1); Platelet Count Result 146 k/mm3 (150-375); Red Blood Count 3.37 M/mm3 (4.2-5.4); Red Cell Distribution Width 13.5 % (11.5-14.5)
[2023-10-26 07:47] LABS: Alanine Aminotransferase 7 U/L (6-35); Alkaline Phosphatase 91 U/L (38-126); Anion Gap 5 mmol/L (8-16); Aspartate Amino Transferase 13 U/L (14-36); Bilirubin,Total 0.4 mg/dL (0.2-1.3); Blood Urea Nitrogen 26 mg/dL (7-17); Calcium 8.5 mg/dL (8.4-10.2); Carbon Dioxide 29 mmol/L (22-30); Chloride 104 mmol/L (98-107); Estimated CRCL calculation 40 ml/min; Estimated Glomerular Filt Rate > 60; Glucose 93 mg/dL (65-110); Potassium 3.6 mmol/L (3.4-5.0); Sodium 138 mmol/L (137-145)
[2023-10-26] MEDS: CARBIDOPA/LEVODOPA 25/100 MG TABLET 2 TABLET PO (09:07)
[2023-10-26] MEDS: ASCORBIC ACID 500 MG TABLET 1000 MG PO ×2 (09:07→17:27)
[2023-10-26] MEDS: ENOXAPARIN 40 MG/0.4 ML SYRINGE SUB-Q (09:08)
[2023-10-26] MEDS: ENTACAPONE 200 MG TABLET PO ×3 (09:08→17:27)
[2023-10-26] MEDS: QUEtiapine FUMARATE 100 MG TABLET PO ×3 (09:08→22:17)
[2023-10-26] MEDS: OSELTAMIVIR PHOSPHATE 30 MG CAPSULE PO ×2 (09:08→22:14)
[2023-10-26] MEDS: ARTIFICIAL TEARS OPHTH SOLN 15 ML BOTTLE 1 DROP EACH EYE ×3 (09:17→17:28)
[2023-10-26] MEDS: CARBIDOPA/LEVODOPA 25/100 MG TABLET 1 TABLET PO ×3 (12:19→22:14)
[2023-10-26] MEDS: CHOLECALCIFEROL 1,000 UNITS TABLET 1000 UNITS PO (12:19)
[2023-10-26] MEDS: CARBIDOPA/LEVODOPA 12.5/50 MG TABLET 1 TABLET PO ×2 (12:19→22:14)
--- NOTE | 2023-10-26 14:21 | PM.IMPN ---
Progress Note: A&P Assessment and Plan (1) Pneumonia: Qualifiers: Laterality: right Lung location: lower lobe of lung Pneumonia type: due to unspecified organism Qualified Code(s): J18.9 - Pneumonia, unspecified organism Code(s): J18.9 - Pneumonia, unspecified organism Status: Acute Assessment and Plan: Chest x-ray with concern for pneumonia Patient started on Rocephin and Zithromax Blood culture no growth to date (2) Influenza B: Code(s): J10.1 - Influenza due to other identified influenza virus with other respiratory manifestations Status: Acute Assessment and Plan: Patient tested positive for flu B. Tamiflu started. Wean oxygen to maintain O2 saturation greater than 92%. Pt now on RA. (3) Altered mental status: Code(s): R41.82 - Altered mental status, unspecified Status: Acute Assessment and Plan: Patient A&O x1 which is her baseline. (4) Parkinson's disease: Code(s): G20.A1 - Parkinson's disease without dyskinesia, without mention of fluctuations Status: Acute Assessment and Plan: Resume home meds as needed (5) Parkinson's disease dementia: Code(s): G20.A1 - Parkinson's disease without dyskinesia, without mention of fluctuations; F02.80 - Dementia in other diseases classified elsewhere, unspecified severity, without behavioral disturbance, psychotic disturbance, mood disturbance, and anxiety Status: Acute Assessment and Plan: Resume home meds as needed Subjective Date/time seen: 10/26/23 14:21 Interval history: Patient not able to answer my questions well. She is alert orient x1 which is her baseline. She has a very wet hacking cough when I enter the room. Plan is to discharge patient home on hospice. Family wanting patient to continue treatment until she is ready for discharge. Exam Narrative: GENERAL: Comfortable, no acute distress HENMT: moist mucous membranes EYES: EOM intact b/l NECK: no lymphadenopathy RESPIRATORY: bibasilar crackles CARDIO: RRR GI: soft, nontender, bowel sounds present SKIN: no rashes EXTREMITIES: no edema, redness or tenderness Objective Data Vital Signs Vital Signs: Vital Signs - 24 hr 10/25/23 15:12 10/25/23 16:00 10/25/23 21:28 Temperature 98.1 F 96.8 F L Pulse Rate 74 69 67 Respiratory Rate 17 16 Blood Pressure 109/53 L 130/66 Pulse Oximetry 95 95 Oxygen Delivery Oxygen Flow Rate 10/25/23 20:00 10/26/23 00:00 10/25/23 22:25 Temperature Pulse Rate 68 71 Respiratory Rate Blood Pressure Pulse Oximetry 94 Oxygen Delivery Nasal Cannula Oxygen Flow Rate 2 10/25/23 22:28 10/25/23 22:42 10/26/23 03:33 Temperature Pulse Rate 71 74 67 Respiratory Rate 16 16 16 Blood Pressure Pulse Oximetry Oxygen Delivery Oxygen Flow Rate 10/26/23 03:46 10/26/23 04:00 10/26/23 06:39 Temperature 97.5 F L Pulse Rate 69 80 69 Respiratory Rate 16 14 Blood Pressure 131/56 L Pulse Oximetry 100 Oxygen Delivery Oxygen Flow Rate 10/26/23 09:05 10/26/23 09:08 10/26/23 09:19 Temperature Pulse Rate 72 70 Respiratory Rate 16 16 Blood Pressure Pulse Oximetry 95 Oxygen Delivery Nasal Cannula Oxygen Flow Rate 2 10/26/23 08:00 10/26/23 10:30 10/26/23 11:00 Temperature Pulse Rate 70 Respiratory Rate 16 Blood Pressure Pulse Oximetry 95 92 Oxygen Delivery Nasal Cannula Nasal Cannula Room Air Oxygen Flow Rate 2 1 10/26/23 08:00 10/26/23 12:00 Temperature Pulse Rate 54 L 66 Respiratory Rate Blood Pressure Pulse Oximetry Oxygen Delivery Oxygen Flow Rate Intake/Output Intake/Output: Intake & Output 10/23/23 10/24/23 10/25/23 10/26/23 23:59 23:59 23:59 23:59 Intake Total 50 974 300 Output Total 500 Balance -450 974 300 Meds/Results Medications: Active Medications Ge
[2023-10-26] MEDS: IPRATROPIUM 0.5 MG/ALBUTEROL SULFATE 2.5 MG AMPUL.NEB 3 ML INHALATION (20:48)
[2023-10-26] MEDS: GABAPENTIN 400 MG CAPSULE PO (22:13)
[2023-10-26] MEDS: MIRTAZAPINE 7.5 MG TABLET PO (22:14)
[2023-10-26] MEDS: MELATONIN 5 MG TABLET 10 MG PO (22:14)
[2023-10-27] VITALS (13 sets, daily range): BP systolic 91–175; BP diastolic 40–72; PULSE 61–85; RESP 12–20; TEMP 36.5–36.8; O2SAT 92–99
[2023-10-27 07:07] LABS: Basophils Percent Auto 0.3 % (0.2-1.2); Eosinophils Percent Auto 0.3 % (0-4.4); Hematocrit 31.4 % (37.0-47.0); Hemoglobin 9.7 g/dL (12.0-15.0); Immature Granulocyte Absolute 0.02 K/mm3 (0.00-0.031); Immature Granulocyte Percent A 0.6 % (0-0.5); Lymphocytes Absolute Auto 0.95 K/mm3 (0.9-3.2); Lymphocytes Percent Auto 27.2 % (18.3-44.2); Mean Corpuscular HGB Conc 30.9 g/dl (32-36); Mean Corpuscular Hemoglobin 30.3 pg (26-34); Mean Corpuscular Volume 98.1 fl (80-100); Mean Platelet Volume 10.2 fl (7.4-10.4); Monocytes Absolute Auto 0.4 K/mm3 (0.1-0.6); Monocytes Percent Auto 11.2 % (2.6-8.5); Neutrophils Absolute Auto 2.1 K/mm3 (1.3-6.7); Neutrophils Percent Auto 60.4 % (45.5-73.1); Platelet Count Result 142 k/mm3 (150-375); Red Cell Distribution Width 13.2 % (11.5-14.5); White Blood Count 3.5 K/mm3 (4.5-10.0)
[2023-10-27 07:36] LABS: Alkaline Phosphatase 86 U/L (38-126); Anion Gap 5 mmol/L (8-16); Aspartate Amino Transferase 10 U/L (14-36); Bilirubin,Total 0.4 mg/dL (0.2-1.3); Blood Urea Nitrogen 18 mg/dL (7-17); Calcium 8.2 mg/dL (8.4-10.2); Carbon Dioxide 27 mmol/L (22-30); Chloride 104 mmol/L (98-107); Estimated CRCL calculation 45 ml/min; Estimated Glomerular Filt Rate > 60; Glucose 83 mg/dL (65-110); Potassium 3.6 mmol/L (3.4-5.0); Sodium 136 mmol/L (137-145)
[2023-10-27] MEDS: IPRATROPIUM 0.5 MG/ALBUTEROL SULFATE 2.5 MG AMPUL.NEB 3 ML INHALATION ×2 (07:55→13:45)
[2023-10-27 08:40] LABS: Alanine Aminotransferase < 6 U/L (6-35)
[2023-10-27] MEDS: ENOXAPARIN 40 MG/0.4 ML SYRINGE SUB-Q (08:48)
[2023-10-27] MEDS: CARBIDOPA/LEVODOPA 25/100 MG TABLET 2 TABLET PO (08:49)
[2023-10-27] MEDS: ASCORBIC ACID 500 MG TABLET 1000 MG PO ×2 (08:49→16:27)
[2023-10-27] MEDS: ARTIFICIAL TEARS OPHTH SOLN 15 ML BOTTLE 1 DROP EACH EYE ×3 (08:49→16:27)
[2023-10-27] MEDS: OSELTAMIVIR PHOSPHATE 30 MG CAPSULE PO (08:49)
[2023-10-27] MEDS: QUEtiapine FUMARATE 100 MG TABLET PO ×2 (08:52→14:26)
[2023-10-27] MEDS: ENTACAPONE 200 MG TABLET PO ×3 (08:52→16:26)
[2023-10-27] MEDS: CARBIDOPA/LEVODOPA 25/100 MG TABLET 1 TABLET PO ×2 (11:14→16:27)
[2023-10-27] MEDS: CHOLECALCIFEROL 1,000 UNITS TABLET 1000 UNITS PO (11:14)
[2023-10-27] MEDS: CARBIDOPA/LEVODOPA 12.5/50 MG TABLET 1 TABLET PO (11:15)
--- NOTE | 2023-10-27 13:05 | PM.IMPN ---
Progress Note: A&P Assessment and Plan (1) Pneumonia: Qualifiers: Laterality: right Lung location: lower lobe of lung Pneumonia type: due to unspecified organism Qualified Code(s): J18.9 - Pneumonia, unspecified organism Code(s): J18.9 - Pneumonia, unspecified organism Status: Acute Assessment and Plan: Chest x-ray with concern for pneumonia Patient started on Rocephin and Zithromax Blood culture no growth to date (2) Influenza B: Code(s): J10.1 - Influenza due to other identified influenza virus with other respiratory manifestations Status: Acute Assessment and Plan: Patient tested positive for flu B. Tamiflu started. Wean oxygen to maintain O2 saturation greater than 92%. Pt now on RA. (3) Altered mental status: Code(s): R41.82 - Altered mental status, unspecified Status: Acute Assessment and Plan: Patient A&O x1 which is her baseline. (4) Parkinson's disease: Code(s): G20.A1 - Parkinson's disease without dyskinesia, without mention of fluctuations Status: Acute Assessment and Plan: Resume home meds as needed (5) Parkinson's disease dementia: Code(s): G20.A1 - Parkinson's disease without dyskinesia, without mention of fluctuations; F02.80 - Dementia in other diseases classified elsewhere, unspecified severity, without behavioral disturbance, psychotic disturbance, mood disturbance, and anxiety Status: Acute Assessment and Plan: Resume home meds as needed Subjective Date/time seen: 10/27/23 13:05 Interval history: Patient doing much better today. She is coughing less and her breath sounds are much more clear. Will likely give patient final doses of IV antibiotics today then transition to oral antibiotics tomorrow. Waiting on hospice company to set up home arrangements for the patient. Will continue further treatment at this time. Exam Narrative: GENERAL: Comfortable, no acute distress HENMT: moist mucous membranes EYES: EOM intact b/l NECK: no lymphadenopathy RESPIRATORY: minimal bibasilar crackles - improved. CARDIO: RRR GI: soft, nontender, bowel sounds present SKIN: no rashes EXTREMITIES: no edema, redness or tenderness Objective Data Vital Signs Vital Signs: Vital Signs - 24 hr 10/26/23 14:33 10/26/23 14:42 10/26/23 16:00 Temperature Pulse Rate 70 72 76 Respiratory Rate 16 16 Blood Pressure Pulse Oximetry Oxygen Delivery Fraction of Inspired Oxygen 10/26/23 14:00 10/26/23 20:48 10/26/23 21:00 Temperature 98.3 F Pulse Rate 77 76 76 Respiratory Rate 16 20 20 Blood Pressure 104/78 Pulse Oximetry 93 Oxygen Delivery Fraction of Inspired Oxygen 10/26/23 20:00 10/26/23 20:00 10/27/23 00:00 Temperature Pulse Rate 73 74 Respiratory Rate Blood Pressure Pulse Oximetry 93 Oxygen Delivery Room Air Fraction of Inspired Oxygen 10/27/23 04:00 10/26/23 22:00 10/27/23 06:00 Temperature 98.9 F 97.7 F Pulse Rate 63 71 64 Respiratory Rate 20 16 Blood Pressure 156/75 H 175/72 H Pulse Oximetry 94 97 Oxygen Delivery Fraction of Inspired Oxygen 10/27/23 07:55 10/27/23 07:55 10/27/23 08:01 Temperature Pulse Rate 73 75 Respiratory Rate 20 20 Blood Pressure Pulse Oximetry 93 Oxygen Delivery Room Air Fraction of Inspired Oxygen 21 10/27/23 08:00 10/27/23 09:30 10/27/23 12:00 Temperature Pulse Rate 81 85 Respiratory Rate Blood Pressure Pulse Oximetry Oxygen Delivery Room Air Fraction of Inspired Oxygen Intake/Output Intake/Output: Intake & Output 10/24/23 10/25/23 10/26/23 10/27/23 23:59 23:59 23:59 23:59 Intake Total 50 974 400 Output Total 500 Balance -450 974 400 Meds/Results Medications: Active Medications Generic Name Dose Route Start Last Admin Trade Name Freq PRN Reason Stop D
[2023-10-27] MEDS: AZITHROMYCIN 500 MG/NS 250 ML 500 MG/250 ML BAG 250 MG IVPB (23:33)
[2023-10-28] VITALS (13 sets, daily range): BP systolic 100–108; BP diastolic 50–68; PULSE 61–90; RESP 16–20; TEMP 36.5–36.9; O2SAT 93–96
[2023-10-28 07:23] LABS: Alanine Aminotransferase 7 U/L (6-35); Albumin Level 3.2 g/dL (3.5-5.1); Alkaline Phosphatase 93 U/L (38-126); Anion Gap 5 mmol/L (8-16); Aspartate Amino Transferase 9 U/L (14-36); Bilirubin,Total 0.5 mg/dL (0.2-1.3); Blood Urea Nitrogen 20 mg/dL (7-17); Calcium 8.6 mg/dL (8.4-10.2); Carbon Dioxide 25 mmol/L (22-30); Chloride 106 mmol/L (98-107); Estimated CRCL calculation 52 ml/min; Estimated Glomerular Filt Rate > 60; Glucose 94 mg/dL (65-110); Potassium 3.8 mmol/L (3.4-5.0); Sodium 136 mmol/L (137-145)
[2023-10-28 07:25] LABS: Basophils Percent Auto 0.3 % (0.2-1.2); Eosinophils Percent Auto 0.3 % (0-4.4); Hematocrit 33.3 % (37.0-47.0); Hemoglobin 10.3 g/dL (12.0-15.0); Immature Granulocyte Absolute 0.04 K/mm3 (0.00-0.031); Immature Granulocyte Percent A 1.1 % (0-0.5); Lymphocytes Absolute Auto 0.73 K/mm3 (0.9-3.2); Lymphocytes Percent Auto 19.9 % (18.3-44.2); Mean Corpuscular HGB Conc 30.9 g/dl (32-36); Mean Corpuscular Hemoglobin 30.1 pg (26-34); Mean Corpuscular Volume 97.4 fl (80-100); Mean Platelet Volume 10.3 fl (7.4-10.4); Monocytes Absolute Auto 0.4 K/mm3 (0.1-0.6); Monocytes Percent Auto 11.7 % (2.6-8.5); Neutrophils Absolute Auto 2.5 K/mm3 (1.3-6.7); Neutrophils Percent Auto 66.7 % (45.5-73.1); Platelet Count Result 176 k/mm3 (150-375); Red Blood Count 3.42 M/mm3 (4.2-5.4); Red Cell Distribution Width 13.4 % (11.5-14.5); White Blood Count 3.7 K/mm3 (4.5-10.0)
[2023-10-28] MEDS: IPRATROPIUM 0.5 MG/ALBUTEROL SULFATE 2.5 MG AMPUL.NEB 3 ML INHALATION ×3 (08:01→19:50)
[2023-10-28] MEDS: ENOXAPARIN 40 MG/0.4 ML SYRINGE SUB-Q (08:36)
[2023-10-28] MEDS: ENTACAPONE 200 MG TABLET PO ×3 (08:37→16:01)
[2023-10-28] MEDS: AZITHROMYCIN 250 MG TABLET 500 MG PO (08:37)
[2023-10-28] MEDS: CARBIDOPA/LEVODOPA 25/100 MG TABLET 2 TABLET PO (08:37)
[2023-10-28] MEDS: ASCORBIC ACID 500 MG TABLET 1000 MG PO ×2 (08:37→16:00)
[2023-10-28] MEDS: QUEtiapine FUMARATE 100 MG TABLET PO ×3 (08:37→20:14)
[2023-10-28] MEDS: OSELTAMIVIR PHOSPHATE 30 MG CAPSULE PO ×2 (08:38→20:13)
[2023-10-28] MEDS: ARTIFICIAL TEARS OPHTH SOLN 15 ML BOTTLE 1 DROP EACH EYE ×3 (08:38→16:01)
[2023-10-28] MEDS: CEFDINIR 300 MG CAPSULE PO ×2 (08:40→20:14)
--- NOTE | 2023-10-28 12:18 | PM.IMPN ---
Progress Note: A&P Assessment and Plan (1) Pneumonia: Qualifiers: Laterality: right Lung location: lower lobe of lung Pneumonia type: due to unspecified organism Qualified Code(s): J18.9 - Pneumonia, unspecified organism Code(s): J18.9 - Pneumonia, unspecified organism Status: Acute Assessment and Plan: Chest x-ray with concern for pneumonia. Patient started on Rocephin and Zithromax -- Patient transitioned to PO cefdinir and azithromycin. Blood culture no growth to date. (2) Influenza B: Code(s): J10.1 - Influenza due to other identified influenza virus with other respiratory manifestations Status: Acute Assessment and Plan: Patient tested positive for flu B. Tamiflu started. Wean oxygen to maintain O2 saturation greater than 92%. Pt now on RA. (3) Altered mental status: Code(s): R41.82 - Altered mental status, unspecified Status: Acute Assessment and Plan: Patient A&O x1 which is her baseline. (4) Parkinson's disease: Code(s): G20.A1 - Parkinson's disease without dyskinesia, without mention of fluctuations Status: Acute Assessment and Plan: Resume home meds as needed (5) Parkinson's disease dementia: Code(s): G20.A1 - Parkinson's disease without dyskinesia, without mention of fluctuations; F02.80 - Dementia in other diseases classified elsewhere, unspecified severity, without behavioral disturbance, psychotic disturbance, mood disturbance, and anxiety Status: Acute Assessment and Plan: Resume home meds as needed Subjective Date/time seen: 10/28/23 12:18 Interval history: Patient waiting for hospice set up at her living facility. Should be able to discharge tomorrow. Patient is stable and doing well. Exam Narrative: GENERAL: Comfortable, no acute distress HENMT: moist mucous membranes EYES: EOM intact b/l NECK: no lymphadenopathy RESPIRATORY: minimal bibasilar crackles - improved. CARDIO: RRR GI: soft, nontender, bowel sounds present SKIN: no rashes EXTREMITIES: no edema, redness or tenderness Objective Data Vital Signs Vital Signs: Vital Signs - 24 hr 10/27/23 13:45 10/27/23 13:55 10/27/23 16:00 Temperature Pulse Rate 81 83 69 Respiratory Rate 20 20 Blood Pressure Pulse Oximetry Oxygen Delivery 10/27/23 14:00 10/27/23 22:00 10/27/23 20:00 Temperature 98.2 F 97.9 F Pulse Rate 76 72 61 Respiratory Rate 12 18 Blood Pressure 91/40 L 128/68 Pulse Oximetry 92 99 Oxygen Delivery 10/28/23 00:00 10/28/23 04:00 10/28/23 08:02 Temperature Pulse Rate 61 69 69 Respiratory Rate 20 Blood Pressure Pulse Oximetry Oxygen Delivery 10/28/23 08:16 10/28/23 08:16 10/28/23 08:00 Temperature Pulse Rate 69 71 Respiratory Rate 18 18 Blood Pressure Pulse Oximetry 94 Oxygen Delivery Room Air Room Air 10/28/23 08:00 Temperature Pulse Rate 73 Respiratory Rate Blood Pressure Pulse Oximetry Oxygen Delivery Intake/Output Intake/Output: Intake & Output 10/25/23 10/26/23 10/27/23 10/28/23 23:59 23:59 23:59 23:59 Intake Total 974 700 120 120 Balance 974 700 120 120 Meds/Results Medications: Active Medications Generic Name Dose Route Start Last Admin Trade Name Freq PRN Reason Stop Dose Admin Albuterol/Ipratropium 3 ml 10/26/23 20:00 10/28/23 08:02 Ipratropium 0.5 Mg/Albuterol Sulfate 2.5 Mg Ampul.Neb 3 Ml INHALATION Not Given Q6HRT NIKOS Artificial Tears 1 drop 10/25/23 17:00 10/28/23 08:38 Artificial Tears Ophth Soln 15 Ml Bottle EACH EYE 1 drop TID NIKOS Administration Artificial Tears 1 drop 10/25/23 16:02 Artificial Tears Ophth Soln 15 Ml Bottle EACH EYE QID PRN Dry Eye(s) Ascorbic Acid 1,000 mg 10/25/23 17:00 10/28/23 08:37 Ascorbic Acid 500 Mg Tablet PO 1,000 mg BID NIKOS Administration Azithromy
[2023-10-28] MEDS: CHOLECALCIFEROL 1,000 UNITS TABLET 1000 UNITS PO (12:48)
[2023-10-28] MEDS: CARBIDOPA/LEVODOPA 25/100 MG TABLET 1 TABLET PO ×3 (12:48→20:14)
[2023-10-28] MEDS: CARBIDOPA/LEVODOPA 12.5/50 MG TABLET 1 TABLET PO ×2 (12:48→20:14)
[2023-10-28 14:00] LABS: Hemoglobin 10.4 g/dL (12.0-15.0); Mean Corpuscular HGB Conc 31.5 g/dl (32-36); Mean Corpuscular Hemoglobin 30.2 pg (26-34); Mean Corpuscular Volume 95.9 fl (80-100); Mean Platelet Volume 10.2 fl (7.4-10.4); Platelet Count Result 179 k/mm3 (150-375); Red Blood Count 3.44 M/mm3 (4.2-5.4); Red Cell Distribution Width 13.2 % (11.5-14.5); White Blood Count 4.6 K/mm3 (4.5-10.0)
[2023-10-28 14:13] LABS: Anion Gap 5 mmol/L (8-16); Blood Urea Nitrogen 22 mg/dL (7-17); Calcium 8.6 mg/dL (8.4-10.2); Carbon Dioxide 27 mmol/L (22-30); Chloride 105 mmol/L (98-107); Estimated CRCL calculation 45 ml/min; Estimated Glomerular Filt Rate > 60; Glucose 127 mg/dL (65-110); Potassium 3.8 mmol/L (3.4-5.0); Sodium 137 mmol/L (137-145)
[2023-10-28] MEDS: MIRTAZAPINE 7.5 MG TABLET PO (20:14)
[2023-10-28] MEDS: MELATONIN 5 MG TABLET 10 MG PO (20:14)
[2023-10-28] MEDS: GABAPENTIN 400 MG CAPSULE PO (20:14)
[2023-10-29] VITALS (8 sets, daily range): BP systolic 112; BP diastolic 61; PULSE 56–88; RESP 18–20; TEMP 36.3; O2SAT 92–96
[2023-10-29] MEDS: IPRATROPIUM 0.5 MG/ALBUTEROL SULFATE 2.5 MG AMPUL.NEB 3 ML INHALATION ×2 (01:35→08:24)
[2023-10-29] MEDS: ENOXAPARIN 40 MG/0.4 ML SYRINGE SUB-Q (09:17)
[2023-10-29] MEDS: CEFDINIR 300 MG CAPSULE PO (09:18)
[2023-10-29] MEDS: CARBIDOPA/LEVODOPA 25/100 MG TABLET 2 TABLET PO (09:18)
[2023-10-29] MEDS: AZITHROMYCIN 250 MG TABLET 500 MG PO (09:18)
[2023-10-29] MEDS: QUEtiapine FUMARATE 100 MG TABLET PO (09:18)
[2023-10-29] MEDS: OSELTAMIVIR PHOSPHATE 30 MG CAPSULE PO (09:18)
[2023-10-29] MEDS: ASCORBIC ACID 500 MG TABLET 1000 MG PO (09:18)
[2023-10-29] MEDS: ENTACAPONE 200 MG TABLET PO ×2 (09:20→12:21)
[2023-10-29] MEDS: ARTIFICIAL TEARS OPHTH SOLN 15 ML BOTTLE 1 DROP EACH EYE ×2 (10:12→12:22)
--- NOTE | 2023-10-29 11:32 | PM.DS ---
DS: Admitting Diagnosis Discharge Date 10/29/23 Admitting Diagnosis Flu, hypoxia, UTI DS: Discharge Diagnosis Discharge Diagnosis (1) Pneumonia: Qualifiers: Laterality: right Lung location: lower lobe of lung Pneumonia type: due to unspecified organism Qualified Code(s): J18.9 - Pneumonia, unspecified organism Code(s): J18.9 - Pneumonia, unspecified organism Status: Acute (2) Influenza B: Code(s): J10.1 - Influenza due to other identified influenza virus with other respiratory manifestations Status: Acute (3) Altered mental status: Code(s): R41.82 - Altered mental status, unspecified Status: Acute (4) Parkinson's disease: Code(s): G20.A1 - Parkinson's disease without dyskinesia, without mention of fluctuations Status: Acute (5) Parkinson's disease dementia: Code(s): G20.A1 - Parkinson's disease without dyskinesia, without mention of fluctuations; F02.80 - Dementia in other diseases classified elsewhere, unspecified severity, without behavioral disturbance, psychotic disturbance, mood disturbance, and anxiety Status: Acute DS: Summary Hospital Course Hospital Course: This is an 83-year-old female with past medical history of Parkinson's disease and dementia the presented to the ED on 10/25/2023 due to increased lethargy, poor oral intake and fever. She was found to be positive for flu B and urine was suspicious for infection. She was started on Tamiflu and IV antibiotics. Chest x-ray was suspicious for pneumonia. Patient's pneumonia was likely viral due to testing positive for flu. It was discussed with patient's daughter that she would discharged back to her living facility in hospice care. Her urine culture came back positive for E coli sensitive to Rocephin and she was transition to p.o. cefdinir. Patient did improve with antibiotic and Tamiflu treatment. She was more alert. At baseline she is alert oriented to self. Once patient was transition to p.o. medication she remained at the hospital until hospice care was set up at her living facility. Discussed patient's care with her daughter who is power of health care attorney and she is in agreement with discharge. Patient's labs and vital signs are stable and she is medically cleared for discharge at this time. Time Spent with Patient Time attestation: Total time spent providing and/or coordinating discharge services: Exam Narrative: GENERAL: Comfortable, no acute distress HENMT: moist mucous membranes EYES: EOM intact b/l NECK: no lymphadenopathy RESPIRATORY: minimal bibasilar crackles - improved. CARDIO: RRR GI: soft, nontender, bowel sounds present SKIN: no rashes EXTREMITIES: no edema, redness or tenderness DS: Data Data Completed and Pending Labs on day of discharge: Labs from last 24 hours 10/28/23 13:16 WBC 4.6 RBC 3.44 L Hgb 10.4 L Hct 33.0 L MCV 95.9 MCH 30.2 MCHC 31.5 L RDW 13.2 Plt Count 179 MPV 10.2 Sodium 137 Potassium 3.8 Chloride 105 Carbon Dioxide 27 Anion Gap 5 L BUN 22 H Creatinine 0.70 Estim Creat Clear Calc 45 Estimated GFR > 60 Glucose 127 H Calcium 8.6 Preliminary micro results at discharge 10/24/23 22:23 Blood Culture - Preliminary Blood 10/24/23 22:23 Blood Culture - Preliminary Blood Discharge Plan Discharge Attending physician on discharge: Katalina Sanchez Consulting providers: Alison Merida; Blaise Torres Discharging Clinician: Delmis Wong Patient Disposition: NH Correction/Asst Living Activity: as tolerated Diet: regular Discharge Instructions: Medications: Cefdinir 300 mg every 12 hours for 2 more days. Next dose will be this evening. Tamiflu 30 mg every 12 hours for 1 more day. Next dose will be this evening. Influenza: Wear a mask in public, and stay away from large crowds Eat well balanced meals and stay hydrated Keep active, but do not over do it No r
[2023-10-29] MEDS: CARBIDOPA/LEVODOPA 25/100 MG TABLET 1 TABLET PO (12:21)
[2023-10-29] MEDS: CARBIDOPA/LEVODOPA 12.5/50 MG TABLET 1 TABLET PO (12:21)
[2023-10-29] MEDS: CHOLECALCIFEROL 1,000 UNITS TABLET 1000 UNITS PO (12:21)
[2023-10-29 13:08] LABS: SARS-CoV-2 RNA PCR Negative (Negative)
== END 2023-10-29 13:50 | disposition hospice, inpatient (51) | DRG 194 ==
LOC: ANHED 10-25 01:10 → ANH3MEDSUR 10-25 02:06
PROVIDERS: Emergency Medicine; Admitting Provider Internal Medicine; Emergency Provider Physician Assistant; PCP Family Medicine; Visit Provider Internal Medicine Critical Care Medicine
DX: J10.00 Influenza due to other identified influenza virus with unspecified type of pneumonia (principal); N39.0 Urinary tract infection, site not specified; B96.20 Unspecified Escherichia coli [E. coli] as the cause of diseases classified elsewhere; D64.9 Anemia, unspecified; N81.10 Cystocele, unspecified; G20.A1 Parkinson's disease without dyskinesia, without mention of fluctuations; F02.80 Dementia in other diseases classified elsewhere, unspecified severity, without behavioral disturbance, psychotic disturbance, mood disturbance, and anxiety; Z20.822 Contact with and (suspected) exposure to COVID-19; Z51.5 Encounter for palliative care; Z11.52 Encounter for screening for COVID-19
CPT/HCPCS: 36415; 71045; 80048; 80053; 81001; 83605; 85025; 85027; 85610; 85730; 86140; 87040; 87086; 87186; 87635; 87637; 93005; 94640; 96365; 96367; 99285; A9270; G0378; J0456; J0696; J1650; J1741; J7040